=== PATIENT | female | born 1945 | race Caucasian/White ===

== ENCOUNTER 2019-01-25 13:21 | Emergency (ER) | payer OTHER ==
[~2019-01-25] VITALS: Ht 160 cm; Wt 53.1 kg
[2019-01-25 13:29] VITALS: Ht 160 cm; Wt 53.1 kg
[2019-01-25 15:06] VITALS: BP 146/79
== END 2019-01-25 15:06 | disposition home or self-care (01) ==
LOC: ED 13:21
DX: M25.532 Pain in left wrist (principal); F41.9 Anxiety disorder, unspecified; F32.9 Major depressive disorder, single episode, unspecified
CPT/HCPCS: Q0092